=== PATIENT | male | born 1935 | race Caucasian/White ===

== ENCOUNTER 2017-04-11 10:17 | Inpatient (IN) | payer MEDICARE ==
[~2017-04-11] VITALS: Ht 188 cm; Wt 101.6 kg
[2017-04-11 11:00] LABS: BASOPHILS % (AUTO) 0.8 % (0.0-5.0); EOSINOPHILS % (AUTO) 2.5 % (0.0-8.0); HEMATOCRIT 28.5 % (42-54); LYMPHOCYTES % (AUTO) 6.8 % (21.0-51.0); MEAN CORPUSCULAR HEMOGLOBIN 28.1 pg (27.0-33.0); MEAN CORPUSCULAR HGB CONC 33.1 g/dL (32.0-36.0); MEAN CORPUSCULAR VOLUME 84.9 fL (79-99); MONOCYTES % (AUTO) 4.9 % (3.0-13.0); NUCLEATED RED BLOOD CELLS 0.1 % (0.0-0.19); PLATELET COUNT (AUTO) 246 K/uL (130-400); RED BLOOD CELL COUNT(AUTO) 3.36 MIL/uL (4.50-6.20); RED CELL DISTRIBUTION WIDTH 15.5 % (11.0-15.5); WHITE BLOOD COUNT (AUTO) 7.9 K/uL (4.8-10.8)
[2017-04-11 11:08] LABS: APPEARANCE,URINE Clear (CLEAR); BILIRUBIN,URINE Negative (NEGATIVE); COLOR,URINE Yellow (YELLOW); GLUCOSE, URINE (UA) Negative (NEGATIVE); KETONES,URINE Negative (NEGATIVE); LEUKOCYTE ESTERASE ,URINE Small (NEGATIVE); NITRATE,URINE Negative (NEGATIVE); OCCULT BLOOD,URINE Negative (NEGATIVE); PROTEIN,URINE Negative (NEGATIVE); UROBILINOGEN,URINE 0.2 mg/dL (0.2-1.0)
[2017-04-11 11:09] LABS: CREATININE 2.9 mg/dL (0.5-1.5); POTASSIUM 5.6 mmol/L (3.5-5.1)
[2017-04-11] MEDS ORDERED: SODIUM CHLORIDE 0.9% 500ML 500 ML IV ONE (11:11)
[2017-04-11 11:12] LABS: ALBUMIN 3.7 g/dL (3.5-5.0); BILIRUBIN,TOTAL 0.4 mg/dL (0.2-1.0); TOTAL PROTEIN, SERUM 7.3 g/dL (6.0-8.3)
[2017-04-11 11:27] LABS: RAPID GROUP A STREP NEGATIVE (NEGATIVE)
[2017-04-11 11:53] LABS: INR 2.19 (0.85-1.15); PARTIAL THROMBOPLASTIN TIME 29.9 SEC (26.3-35.5); PROTHROMBIN TIME 22.6 SEC (9.6-11.6)
[2017-04-11] MEDS ORDERED: METOPROLOL TARTRATE 1 MG/ML 5ML VIAL IV ONE ×3 (12:04→15:45)
[2017-04-11 12:05] LABS: BACTERIA,URINE Rare /HPF (None Seen); HYALINE CASTS, URINE 0-1 /LPF (0-1 /LPF); MUCUS,URINE Rare LPF (None Seen); RBC,URINE 0-1 /HPF (0-1); SQUAMOUS EPITHELIAL CELL,UR Rare /LPF (0-2); WBC,URINE 0-1 /HPF (0-1)
[2017-04-11] MEDS ORDERED: SODIUM CHLORIDE 0.9% 1000ML 1,000 ML IV SCH (13:10)
[2017-04-11] MEDS ORDERED: HYDRALAZINE HCL 20 MG/ML VIAL IV PRN (13:15)
[2017-04-11] MEDS ORDERED: LIDOCAINE HCL-MPF 1% 2ML VIAL IVP PRN (13:15)
[2017-04-11] MEDS ORDERED: MAG HYDROX/AL HYDROX/SIMETH ES 30 ML SUSP UDCUP PO PRN (13:15)
[2017-04-11] MEDS ORDERED: GUAIFENESIN-DM 200/20 MG 10 ML PO PRN (13:15)
[2017-04-11] MEDS ORDERED: ACETAMINOPHEN-CODEINE 300/30MG TAB PO PRN ×2 (13:15)
[2017-04-11] MEDS ORDERED: ONDANSETRON HCL 4 MG/2 ML VIAL IV PRN (13:15)
[2017-04-11] MEDS ORDERED: DiphenhydrAMINE HCL 50 MG/ML VIAL IV PRN (13:15)
[2017-04-11] MEDS ORDERED: POTASSIUM CHLORIDE 20MEQ/100ML 100 ML IV PRN (13:15)
[2017-04-11] MEDS ORDERED: POTASSIUM CHLORIDE 10% ELIXIR 20 MEQ/15 ML UDCUP PO PRN (13:15)
[2017-04-11] MEDS ORDERED: NITROGLYCERIN 0.4 MG SL TAB SL PRN (13:15)
[2017-04-11] MEDS ORDERED: DIPHENHYDRAMINE HCL 25 MG CAPSULE PO PRN (13:15)
[2017-04-11] MEDS ORDERED: MORPHINE SULFATE 2 MG/ML 1ML SYG IV PRN (13:15)
[2017-04-11] MEDS ORDERED: POTASSIUM CHLORIDE 20 MEQ ERTAB PO PRN (13:15)
[2017-04-11] MEDS ORDERED: ACETAMINOPHEN 325 MG TAB PO PRN ×2 (13:15)
[2017-04-11] MEDS ORDERED: MORPHINE SULFATE 4 MG/1ML SYG IV PRN (13:15)
[2017-04-11] MEDS ORDERED: LACTULOSE 20 GM/30 ML UDCUP PO PRN (13:15)
[2017-04-11] MEDS ORDERED: DIGOXIN 250 MCG/ML 2ML AMP ONE (14:20)
[2017-04-11] MEDS ORDERED: AMIODARONE HCL 150 MG in DEXTROSE 5%-WATER 100 ML IV SCH (16:15)
[2017-04-11] MEDS ORDERED: AMIODARONE HCL 900 MG in DEXTROSE 5%-WATER 500 ML IV SCH (16:15)
[2017-04-11] MEDS: INSULIN HUMULIN R 100 UNIT/ML 3ML SQ SCH ×2 (16:30→21:00)
[2017-04-11 16:55] VITALS: BP 130/78
[2017-04-11] MEDS ORDERED: HYDR10 PO (17:38)
[2017-04-11] MEDS ORDERED: WARF-57 PO (17:38)
[2017-04-11] MEDS ORDERED: ATOR40TA71 PO (17:38)
[2017-04-11] MEDS ORDERED: LISI10TA7 PO (17:38)
[2017-04-11] MEDS ORDERED: FURO40TA5 PO (17:38)
[2017-04-11] MEDS ORDERED: AEC81 PO (17:38)
[2017-04-11] MEDS ORDERED: LEVO150T11 PO (17:38)
[2017-04-11] MEDS ORDERED: POTA10TA14 PO (17:38)
[2017-04-11] MEDS ORDERED: AMIO200T2 PO (17:38)
[2017-04-11] MEDS ORDERED: WARF7.5T49 PO (17:38)
[2017-04-11] MEDS ORDERED: CARV6.25 PO (17:38)
[2017-04-11] MEDS ORDERED: MULT-1258 PO (17:38)
[2017-04-11] MEDS ORDERED: NITR0.4T SL (17:38)
[2017-04-11 18:30] LABS: CREATINE KINASE MB 1.4 ng/mL (0.5-3.6); TROPONIN I 0.05 ng/mL (0.00-0.06)
[2017-04-11 19:29] VITALS: BP 107/60
[2017-04-11] MEDS: FAMOTIDINE/PF 20 MG/2 ML VIAL IV SCH (20:15)
[2017-04-11] MEDS: METOPROLOL TARTRATE 25 MG TAB PO SCH (20:15)
[2017-04-11 23:13] VITALS: BP 104/63
[2017-04-12 02:19] LABS: HEMATOCRIT 23.2 % (42-54); MEAN CORPUSCULAR HEMOGLOBIN 29.1 pg (27.0-33.0); MEAN CORPUSCULAR HGB CONC 33.7 g/dL (32.0-36.0); MEAN CORPUSCULAR VOLUME 86.4 fL (79-99); PLATELET COUNT (AUTO) 181 K/uL (130-400); RED BLOOD CELL COUNT(AUTO) 2.69 MIL/uL (4.50-6.20); RED CELL DISTRIBUTION WIDTH 15.4 % (11.0-15.5); WHITE BLOOD COUNT (AUTO) 6.3 K/uL (4.8-10.8)
[2017-04-12] MEDS: SODIUM POLYSTYRENE SULFONATE 15 GM/60 ML ML PO SCH ×2 (02:30→19:12)
[2017-04-12 02:41] LABS: CREATINE KINASE MB 0.9 ng/mL (0.5-3.6); CREATININE 2.6 mg/dL (0.5-1.5); MAGNESIUM 1.8 mg/dL (1.80-2.40); PHOSPHORUS 4.1 mg/dL (2.5-4.9); POTASSIUM 5.6 mmol/L (3.5-5.1); TROPONIN I 0.05 ng/mL (0.00-0.06)
[2017-04-12 02:51] LABS: B-TYPE NATRIURETIC PEPTIDE 567 pg/mL (0-100)
[2017-04-12] MEDS ORDERED: SODIUM POLYSTYRENE SULFONATE 15 GM/60 ML ML ONE (03:02)
[2017-04-12 03:29] VITALS: BP 93/61
[2017-04-12 07:00] VITALS: BP 106/75
[2017-04-12] MEDS: ASPIRIN 325 MG TABLET PO SCH (09:09)
[2017-04-12] MEDS: FAMOTIDINE/PF 20 MG/2 ML VIAL IV SCH ×2 (09:09→20:19)
[2017-04-12] MEDS: METOPROLOL TARTRATE 25 MG TAB PO SCH ×2 (09:09→20:19)
[2017-04-12] MEDS ORDERED: NITROGLYCERIN 0.4 MG SL TAB SL SCH (09:15)
[2017-04-12 09:43] LABS: INR 2.47 (0.85-1.15); PROTHROMBIN TIME 25.5 SEC (9.6-11.6)
[2017-04-12 12:07] VITALS: BP 121/62
[2017-04-12 16:00] VITALS: BP 107/70
[2017-04-12 19:26] VITALS: BP 105/55
[2017-04-12] MEDS: HYDRALAZINE HCL 10 MG TABLET PO SCH (20:19)
[2017-04-12] MEDS ORDERED: ATORVASTATIN CALCIUM 40 MG TABLET PO SCH (21:00)
[2017-04-12 23:53] VITALS: BP 106/52
[2017-04-13] VITALS (12 sets, daily range): BP systolic 103–133; BP diastolic 49–69
[2017-04-13 04:41] LABS: HEMATOCRIT 24.1 % (42-54); MEAN CORPUSCULAR HEMOGLOBIN 28.1 pg (27.0-33.0); MEAN CORPUSCULAR VOLUME 85.2 fL (79-99); PLATELET COUNT (AUTO) 213 K/uL (130-400); RED BLOOD CELL COUNT(AUTO) 2.82 MIL/uL (4.50-6.20); RED CELL DISTRIBUTION WIDTH 15.5 % (11.0-15.5); WHITE BLOOD COUNT (AUTO) 5.9 K/uL (4.8-10.8)
[2017-04-13 04:47] LABS: CREATININE 1.9 mg/dL (0.5-1.5); POTASSIUM 4.4 mmol/L (3.5-5.1)
[2017-04-13 05:20] LABS: B-TYPE NATRIURETIC PEPTIDE 621 pg/mL (0-100)
[2017-04-13] MEDS ORDERED: LEVOTHYROXINE 150 MCG TABLET PO SCH (07:30)
[2017-04-13] MEDS: METOPROLOL TARTRATE 25 MG TAB PO SCH (09:00)
[2017-04-13] MEDS ORDERED: FUROSEMIDE 40 MG TABLET PO SCH (09:00)
[2017-04-13] MEDS ORDERED: POTASSIUM CHLORIDE 10 MEQ/TAB.SA PO SCH (09:00)
[2017-04-13] MEDS ORDERED: MULTIVITAMIN WITH MINERALS TABLET PO SCH (09:00)
[2017-04-13] MEDS: HYDRALAZINE HCL 10 MG TABLET PO SCH (09:00)
[2017-04-13] MEDS: FAMOTIDINE/PF 20 MG/2 ML VIAL IV SCH (09:00)
[2017-04-13] MEDS: ASPIRIN 325 MG TABLET PO SCH (09:00)
[2017-04-13] MEDS ORDERED: LISINOPRIL 10 MG TABLET PO SCH (09:00)
[2017-04-13] MEDS ORDERED: SODIUM CHLORIDE 0.9% 1000ML 1,000 ML IV ONE (09:50)
[2017-04-13] MEDS ORDERED: PROPOFOL 10 MG/ML 20ML VIAL IV ONE (10:16)
== END 2017-04-13 13:00 | disposition home or self-care (01) | DRG 291 ==
LOC: EDH 10:17 → OBSVTOIN 12:28 → EDHIP 12:28 → 2AH 16:30
PROVIDERS: ADMIT Internal Medicine; ATTEND Internal Medicine
PROC: 5A2204Z Restoration of Cardiac Rhythm, Single (ICD-10-PCS; principal; 2017-04-13)
DX: I13.0 Hypertensive heart and chronic kidney disease with heart failure and stage 1 through stage 4 chronic kidney disease, or unspecified chronic kidney disease (principal); I50.33 Acute on chronic diastolic (congestive) heart failure; N17.9 Acute kidney failure, unspecified; E11.22 Type 2 diabetes mellitus with diabetic chronic kidney disease; E87.5 Hyperkalemia; I48.91 Unspecified atrial fibrillation; I48.92 Unspecified atrial flutter; I47.1 Supraventricular tachycardia; E03.9 Hypothyroidism, unspecified; I42.9 Cardiomyopathy, unspecified; E78.5 Hyperlipidemia, unspecified; I25.10 Atherosclerotic heart disease of native coronary artery without angina pectoris; N18.9 Chronic kidney disease, unspecified; Z86.73 Personal history of transient ischemic attack (TIA), and cerebral infarction without residual deficits; Z95.1 Presence of aortocoronary bypass graft; Z95.2 Presence of prosthetic heart valve; Z95.810 Presence of automatic (implantable) cardiac defibrillator; I08.0 Rheumatic disorders of both mitral and aortic valves; Z88.0 Allergy status to penicillin; Z28.21 Immunization not carried out because of patient refusal
CPT/HCPCS: 36415; 71045; 80048; 80053; 81001; 82550; 82553; 83605; 83735; 83874; 83880; 84100; 84132; 84484; 85025; 85027; 85378; 85610; 85730; 87804; 87880; 92960; 93005; 93970; 99291; J0282; J1160; J2704; J3490; J7030; J7040; J7060

== ENCOUNTER 2017-05-21 14:01 | Observation (INO) | payer MEDICARE ==
[~2017-05-21] VITALS: Ht 188 cm; Wt 97.1 kg
[~2017-05-21 14:01] MED LIST: AEC81 PO; AMIO200T2 PO; ATOR40TA71 PO; CARV6.25 PO; FURO40TA5 PO; LEVO150T11 PO; LISI10TA7 PO; MULT-1258 PO; NITR0.4T SL; POTA10TA14 PO; WARF-57 PO; WARF7.5T49 PO
[2017-05-21 15:34] LABS: BASOPHILS % (AUTO) 0.9 % (0.0-5.0); EOSINOPHILS % (AUTO) 9.3 % (0.0-8.0); HEMATOCRIT 24.4 % (42-54); LYMPHOCYTES % (AUTO) 14.2 % (21.0-51.0); MEAN CORPUSCULAR HEMOGLOBIN 25.5 pg (27.0-33.0); MEAN CORPUSCULAR HGB CONC 32.1 g/dL (32.0-36.0); MEAN CORPUSCULAR VOLUME 79.3 fL (79-99); MONOCYTES % (AUTO) 9.6 % (3.0-13.0); PLATELET COUNT (AUTO) 246 K/uL (130-400); RED BLOOD CELL COUNT(AUTO) 3.08 MIL/uL (4.50-6.20); RED CELL DISTRIBUTION WIDTH 16.2 % (11.0-15.5); WHITE BLOOD COUNT (AUTO) 5.8 K/uL (4.8-10.8)
[2017-05-21 15:46] LABS: CREATININE 2.3 mg/dL (0.5-1.5); POTASSIUM 4.6 mmol/L (3.5-5.1)
[2017-05-21 15:47] LABS: INR 2.74 (0.85-1.15); PARTIAL THROMBOPLASTIN TIME 32.3 SEC (26.3-35.5); PROTHROMBIN TIME 28.2 SEC (9.6-11.6)
[2017-05-21 15:51] LABS: ALBUMIN 3.9 g/dL (3.5-5.0); BILIRUBIN,TOTAL 0.6 mg/dL (0.2-1.0); TOTAL PROTEIN, SERUM 7.3 g/dL (6.0-8.3)
[2017-05-21 16:51] LABS: APPEARANCE,URINE Clear (CLEAR); BILIRUBIN,URINE Negative (NEGATIVE); COLOR,URINE Yellow (YELLOW); GLUCOSE, URINE (UA) Negative (NEGATIVE); KETONES,URINE Negative (NEGATIVE); LEUKOCYTE ESTERASE ,URINE Trace (NEGATIVE); NITRATE,URINE Negative (NEGATIVE); OCCULT BLOOD,URINE Negative (NEGATIVE); PROTEIN,URINE Negative (NEGATIVE); UROBILINOGEN,URINE 0.2 mg/dL (0.2-1.0)
[2017-05-21 17:05] LABS: RBC,URINE None Seen /HPF (0-1); WBC,URINE 0-1 /HPF (0-1)
[2017-05-21 17:06] LABS: BACTERIA,URINE None Seen /HPF (None Seen); SQUAMOUS EPITHELIAL CELL,UR 0-2 /HPF (0-2)
[2017-05-21 19:27] LABS: RETICULOCYTE % (AUTO) 1.91 % (0.42-2.23)
[2017-05-21 19:40] VITALS: BP 141/70
[2017-05-21 20:11] LABS: % IRON SATURATION 4.3 % (30-44); FERRITIN 25 ng/mL (30-400); IRON, SERUM 22 mcg/dL (65-175); TOTAL IRON BINDING CAPACITY 506 mcg/dL (250-450)
[2017-05-21 20:20] VITALS: BP 141/70
[2017-05-21] MEDS ORDERED: SODIUM CHLORIDE 0.9% 500ML 500 ML IV ONE (20:55)
[2017-05-21] MEDS ORDERED: ONDANSETRON HCL MDV 20ML 2 MG/ML VIAL IVP PRN (21:00)
[2017-05-21] MEDS ORDERED: ACETAMINOPHEN 325 MG TAB PO PRN ×2 (21:00)
[2017-05-21] MEDS ORDERED: FUROSEMIDE 10 MG/ML 4ML VIAL IV SCH (22:00)
[2017-05-22 02:06] LABS: HEMATOCRIT 23.3 % (42-54)
[2017-05-22 04:00] VITALS: BP 132/66
[2017-05-22 08:00] VITALS: BP 142/74
[2017-05-22 08:20] LABS: HEMATOCRIT 28.1 % (42-54); MEAN CORPUSCULAR HEMOGLOBIN 27.1 pg (27.0-33.0); MEAN CORPUSCULAR HGB CONC 33.9 g/dL (32.0-36.0); PLATELET COUNT (AUTO) 234 K/uL (130-400); RED BLOOD CELL COUNT(AUTO) 3.52 MIL/uL (4.50-6.20); RED CELL DISTRIBUTION WIDTH 16.2 % (11.0-15.5); WHITE BLOOD COUNT (AUTO) 6.3 K/uL (4.8-10.8)
[2017-05-22 08:36] LABS: INR 2.28 (0.85-1.15); PROTHROMBIN TIME 23.6 SEC (9.6-11.6)
[2017-05-22] MEDS ORDERED: FAMOTIDINE 20MG TAB 20 MG TAB PO SCH (09:00)
[2017-05-22] MEDS ORDERED: FERROUS SULFATE 325 MG TABLET.DR PO SCH (09:00)
[2017-05-22] MEDS ORDERED: FERS325 PO (09:43)
== END 2017-05-22 11:35 | disposition home or self-care (01) ==
LOC: EDH 14:01 → EDHIP 18:00 → 3BH 19:52
PROVIDERS: ADMIT Internal Medicine; ATTEND Internal Medicine
DX: D50.9 Iron deficiency anemia, unspecified (principal); I12.9 Hypertensive chronic kidney disease with stage 1 through stage 4 chronic kidney disease, or unspecified chronic kidney disease; N18.3 Chronic kidney disease, stage 3 (moderate); I48.2 Chronic atrial fibrillation; E78.5 Hyperlipidemia, unspecified; I25.10 Atherosclerotic heart disease of native coronary artery without angina pectoris; I05.9 Rheumatic mitral valve disease, unspecified; I35.9 Nonrheumatic aortic valve disorder, unspecified; E03.9 Hypothyroidism, unspecified; I42.9 Cardiomyopathy, unspecified; Z95.2 Presence of prosthetic heart valve; Z86.73 Personal history of transient ischemic attack (TIA), and cerebral infarction without residual deficits; Z95.1 Presence of aortocoronary bypass graft; Z79.01 Long term (current) use of anticoagulants
CPT/HCPCS: 36415 ×2; 36430; 71045; 80053; 81001; 82270; 82607; 82728; 82746; 84484; 85014; 85018; 85025; 85027; 85610 ×2; 85730; 86850; 86900; 86901; 86922; 93005; 96374; 99285; G0378 ×18; J1940; J7040; P9016 ×2

== ENCOUNTER → 2017-05-28 | Outpatient (CLI) | payer MEDICARE ==
[~2017-05-28] MED LIST changes: +ALBUTEROL SULFATE 0.083% 2.5 MG/3 ML INH IH ONE; +FERS325 PO; -NITR0.4T SL
== END ==
LOC: RESP 08:43
PROVIDERS: ATTEND Internal Medicine Cardiovascular Disease
DX: R06.09 Other forms of dyspnea (principal)
CPT/HCPCS: 94060; 94727; 94729

== ENCOUNTER → 2017-06-02 | Outpatient (CLI) | payer MEDICARE ==
[~2017-06-02] MED LIST changes: -ALBUTEROL SULFATE 0.083% 2.5 MG/3 ML INH IH ONE; -AMIO200T2 PO; +AMIO200T5 PO
== END ==
LOC: RAH 13:31
PROVIDERS: ATTEND Internal Medicine Cardiovascular Disease
DX: I70.0 Atherosclerosis of aorta (principal); I51.7 Cardiomegaly; J84.10 Pulmonary fibrosis, unspecified
CPT/HCPCS: 71250

== ENCOUNTER → 2017-07-01 | Outpatient (CLI) | payer MEDICARE | END | disposition home or self-care (01) | LOC: RAH 09:58 | PROVIDERS: ATTEND Internal Medicine | DX: N40.0 Benign prostatic hyperplasia without lower urinary tract symptoms (principal); N28.89 Other specified disorders of kidney and ureter | CPT/HCPCS: 74176 ==

== ENCOUNTER → 2017-07-10 | Outpatient (CLI) | payer MEDICARE | END | disposition home or self-care (01) | LOC: RAH 13:28 | PROVIDERS: ATTEND Internal Medicine | DX: N28.1 Cyst of kidney, acquired (principal); N28.89 Other specified disorders of kidney and ureter | CPT/HCPCS: 76770 ==

== ENCOUNTER 2017-12-10 05:59 | Day surgery (SDC) | payer MEDICARE ==
[2017-12-08 13:45] VITALS: BP 125/57
[2017-12-08 14:09] LABS: BASOPHILS % (AUTO) 1.2 % (0.0-5.0); EOSINOPHILS % (AUTO) 4.5 % (0.0-8.0); HEMATOCRIT 34.9 % (42-54); LYMPHOCYTES % (AUTO) 13.7 % (21.0-51.0); MEAN CORPUSCULAR HEMOGLOBIN 32.6 pg (27.0-33.0); MEAN CORPUSCULAR HGB CONC 33.7 g/dL (32.0-36.0); MEAN CORPUSCULAR VOLUME 96.6 fL (79-99); MONOCYTES % (AUTO) 7.2 % (3.0-13.0); NEUTROPHILS % (AUTO) 73.4 % (40.0-77.0); PLATELET COUNT (AUTO) 183 K/uL (130-400); RED BLOOD CELL COUNT(AUTO) 3.61 MIL/uL (4.50-6.20); RED CELL DISTRIBUTION WIDTH 14.1 % (11.0-15.5); WHITE BLOOD COUNT (AUTO) 5.4 K/uL (4.8-10.8)
[2017-12-08 14:20] LABS: CREATININE 1.7 mg/dL (0.5-1.5); POTASSIUM 4.3 mmol/L (3.5-5.1)
[2017-12-08 14:34] LABS: INR 1.55 (0.85-1.15); PROTHROMBIN TIME 16.1 SEC (9.6-11.6)
[2017-12-10] VITALS (9 sets, daily range): BP systolic 108–128; BP diastolic 53–65
[~2017-12-10] VITALS: Ht 188 cm; Wt 96.3 kg
[~2017-12-10 05:59] MED LIST changes: -AMIO200T5 PO; -LISI10TA7 PO; +NITR0.4T50 SL
[2017-12-10] MEDS ORDERED: SODIUM CHLORIDE 0.9% 1000ML 1,000 ML IV SCH (06:00)
[2017-12-10] MEDS ORDERED: WARF7.5T49 PO (06:49)
[2017-12-10] MEDS ORDERED: LIDOCAINE HCL-MPF 2% 5ML VIAL ONE (07:44)
[2017-12-10] MEDS ORDERED: MEPERIDINE-PF 25 MG/ML SYG ONE ×4 (07:44→09:12)
[2017-12-10] MEDS ORDERED: MIDAZOLAM HCL 1 MG/ML 2ML VIAL ONE ×4 (07:45→09:12)
== END 2017-12-10 14:00 | disposition home or self-care (01) ==
LOC: DAH 05:59
PROVIDERS: ATTEND Internal Medicine Cardiovascular Disease
DX: I48.92 Unspecified atrial flutter (principal); I47.1 Supraventricular tachycardia; I25.10 Atherosclerotic heart disease of native coronary artery without angina pectoris; E78.5 Hyperlipidemia, unspecified; E03.9 Hypothyroidism, unspecified; D86.2 Sarcoidosis of lung with sarcoidosis of lymph nodes; I13.0 Hypertensive heart and chronic kidney disease with heart failure and stage 1 through stage 4 chronic kidney disease, or unspecified chronic kidney disease; N18.4 Chronic kidney disease, stage 4 (severe); I50.9 Heart failure, unspecified; Z98.890 Other specified postprocedural states; Z79.82 Long term (current) use of aspirin; Z79.899 Other long term (current) drug therapy; Z79.01 Long term (current) use of anticoagulants; Z95.1 Presence of aortocoronary bypass graft; Z87.19 Personal history of other diseases of the digestive system; Z91.010 Allergy to peanuts
CPT/HCPCS: 36415; 80048; 85025; 85610; 85730; 93287 ×2; 93613; 93621; 93653; A4606; A4649; C1730; C1732; C1893; C1894 ×2; J1644; J2175 ×4; J2250 ×4; J3490; J7030; 99156; 99157

== ENCOUNTER → 2018-04-09 | Outpatient (CLI) | payer MEDICARE | END | disposition home or self-care (01) | LOC: RAH 12:07 | PROVIDERS: ATTEND Internal Medicine | DX: M17.12 Unilateral primary osteoarthritis, left knee (principal); M17.11 Unilateral primary osteoarthritis, right knee | CPT/HCPCS: 73562 ==

== ENCOUNTER 2018-06-10 06:36 | Day surgery (SDC) | payer MEDICARE ==
[2018-06-09 15:12] VITALS: BP 112/56
[2018-06-09 15:25] LABS: BASOPHILS % (AUTO) 0.9 % (0.0-5.0); EOSINOPHILS % (AUTO) 6.1 % (0.0-8.0); HEMATOCRIT 31.2 % (42-54); LYMPHOCYTES % (AUTO) 14.3 % (21.0-51.0); MEAN CORPUSCULAR HEMOGLOBIN 31.8 pg (27.0-33.0); MEAN CORPUSCULAR HGB CONC 33.9 g/dL (32.0-36.0); MEAN CORPUSCULAR VOLUME 93.7 fL (79-99); MONOCYTES % (AUTO) 7.8 % (3.0-13.0); NEUTROPHILS % (AUTO) 70.9 % (40.0-77.0); PLATELET COUNT (AUTO) 198 K/uL (130-400); RED BLOOD CELL COUNT(AUTO) 3.33 MIL/uL (4.50-6.20); RED CELL DISTRIBUTION WIDTH 13.2 % (11.0-15.5); WHITE BLOOD COUNT (AUTO) 6.6 K/uL (4.8-10.8)
[2018-06-09 15:27] LABS: CREATININE 2.1 mg/dL (0.5-1.5); POTASSIUM 4.3 mmol/L (3.5-5.1)
[2018-06-09 15:30] LABS: PARTIAL THROMBOPLASTIN TIME 35.8 SEC (26.3-35.5)
[2018-06-09 15:40] LABS: PROTHROMBIN TIME 39.1 SEC (9.6-11.6)
[2018-06-09 15:41] LABS: INR 3.82 (0.85-1.15)
--- NOTE | 2018-06-09 17:00 | NUR ---
ABNORMAL LABS, H&P CALLED DR. MAYO'S OFFICE TO REPORT ABNORMAL LABS. SPOKE TO CORNELIUS, STATED TO FAX LABS, WILL CALL BACK FOR ORDERS IF ANY. CBC, BMP, PT/INR RESULTS FAXED. FOLLOW UP ON H&P, CORNELIUS STATED DR. MAYO HAS NOT DONE THE H&P, FOR NOW, JUST PLACE A SHORT FORM IN CHART.
[~2018-06-10] VITALS: Ht 188 cm; Wt 98.3 kg
[2018-06-10] VITALS (9 sets, daily range): BP systolic 106–131; BP diastolic 48–79
[~2018-06-10 06:36] MED LIST changes: +LISI2.5T2 PO; +SODIUM CHLORIDE 0.9% 1000ML 1,000 ML IV SCH; -WARF-57 PO
--- NOTE | 2018-06-10 07:00 | NUR ---
ASSESSMENT PT HERE FOR PROCEDURE. EKG SHOWED VENTRICULAR PACED COMPLEXES ON EKG. PT FEELS FINE. DENIES ANY DIZZINESS, PAIN. AT BEDSIDE.
[2018-06-10] MEDS ORDERED: PROPOFOL 10 MG/ML 20ML VIAL IV ONE (07:52)
--- NOTE | 2018-06-10 08:41 | NUR ---
CARDIOVERSION CARDIOVERSION WITH Yue SMITH CRNA AND DR. MAYO PERFORMED AT BEDSIDE. TIME OUT DONE AT 0843. START TIME OF PROCEDURE WAS 0844. INTERNAL SHOCK AT [address] MAYO AT 0845. SUCCESSFUL. PROCEDURE DENIED AT 0855 AND RECOVERY PHASE STARTED. PT TOLERATED WELL WITHOUT ANY COMPLAINTS. DR. MAYO SPOKE TO PT AND PTS . NO OTHER QUESTIONS AT THIS TIME.
--- NOTE | 2018-06-10 09:45 | NUR ---
DISCHARGE ORAL AND WRITTEN DISCHARGE INSTRUCTIONS GIVEN TO PT AND PTS . NO OTHER QUESTIONS AT THIS TIME.
== END 2018-06-10 09:50 | disposition home or self-care (01) ==
LOC: DAH 06:36
PROVIDERS: ATTEND Internal Medicine Cardiovascular Disease
DX: I48.91 Unspecified atrial fibrillation (principal); I47.1 Supraventricular tachycardia; Z88.0 Allergy status to penicillin; Z79.01 Long term (current) use of anticoagulants; Z79.82 Long term (current) use of aspirin; Z79.899 Other long term (current) drug therapy; Z68.27 Body mass index [BMI] 27.0-27.9, adult; I25.10 Atherosclerotic heart disease of native coronary artery without angina pectoris; Z95.1 Presence of aortocoronary bypass graft; E78.5 Hyperlipidemia, unspecified; E03.9 Hypothyroidism, unspecified; J44.9 Chronic obstructive pulmonary disease, unspecified; D64.9 Anemia, unspecified; I42.9 Cardiomyopathy, unspecified; I12.9 Hypertensive chronic kidney disease with stage 1 through stage 4 chronic kidney disease, or unspecified chronic kidney disease; N18.4 Chronic kidney disease, stage 4 (severe)
CPT/HCPCS: 36415; 80048; 85025; 85610; 85730; 92960; 93005 ×2; A4606; J2704; J7030; 99156

== ENCOUNTER → 2018-08-13 | Outpatient (CLI) | payer MEDICARE ==
[~2018-08-13] MED LIST changes: -FERS325 PO; -NITR0.4T50 SL; -SODIUM CHLORIDE 0.9% 1000ML 1,000 ML IV SCH
== END | disposition home or self-care (01) ==
LOC: SHCH 14:28
PROVIDERS: ATTEND Internal Medicine Cardiovascular Disease
DX: I08.1 Rheumatic disorders of both mitral and tricuspid valves (principal); I11.9 Hypertensive heart disease without heart failure; I27.20 Pulmonary hypertension, unspecified
CPT/HCPCS: 93306

== ENCOUNTER → 2018-08-18 | Outpatient (CLI) | payer MEDICARE ==
[~2018-08-18] VITALS: Ht 188 cm; Wt 97.5 kg
[~2018-08-18] MED LIST changes: +REGADENOSON 0.4 MG/5 ML PF SYG IVP SCH
== END | disposition home or self-care (01) ==
LOC: SHCH 08:03
PROVIDERS: ATTEND Internal Medicine Cardiovascular Disease
DX: I42.0 Dilated cardiomyopathy (principal)
CPT/HCPCS: 78452; 93017; 96374; A9500 ×2; J2785

== ENCOUNTER → 2018-08-31 | Outpatient (CLI) | payer MEDICARE ==
[~2018-08-31] MED LIST changes: -REGADENOSON 0.4 MG/5 ML PF SYG IVP SCH
== END | disposition home or self-care (01) ==
LOC: RAH 12:27
PROVIDERS: ATTEND Internal Medicine
DX: R05 Cough (principal)
CPT/HCPCS: 71046

== ENCOUNTER → 2018-10-09 | Outpatient (CLI) | payer MEDICARE | END | disposition home or self-care (01) | LOC: RAH 10:36 | PROVIDERS: ATTEND Internal Medicine | DX: J44.9 Chronic obstructive pulmonary disease, unspecified (principal); J84.10 Pulmonary fibrosis, unspecified; I51.7 Cardiomegaly; M47.815 Spondylosis without myelopathy or radiculopathy, thoracolumbar region; Z95.0 Presence of cardiac pacemaker | CPT/HCPCS: 71250 ==

== ENCOUNTER 2018-11-12 14:55 | Emergency (ER) | payer MEDICARE ==
[2018-11-12] MEDS ORDERED: TETANUS/DIPHTHERIA TOXOID [ADULT] 0.5 ML VIAL IM ONE (15:03)
[2018-11-12] MEDS ORDERED: OCTYL 2-CYANOACRYLATE 1 EACH TP ONE ×2 (15:07→15:11)
== END 2018-11-12 16:01 | disposition home or self-care (01) ==
LOC: EDH 14:55
DX: S61.215A Laceration without foreign body of left ring finger without damage to nail, initial encounter (principal); I48.91 Unspecified atrial fibrillation; I25.10 Atherosclerotic heart disease of native coronary artery without angina pectoris; E78.5 Hyperlipidemia, unspecified; I10 Essential (primary) hypertension; E03.9 Hypothyroidism, unspecified; Z86.73 Personal history of transient ischemic attack (TIA), and cerebral infarction without residual deficits; Z87.891 Personal history of nicotine dependence; Z88.0 Allergy status to penicillin; W45.8XXA Other foreign body or object entering through skin, initial encounter; Y93.89 Activity, other specified; Y92.090 Kitchen in other non-institutional residence as the place of occurrence of the external cause; Y99.8 Other external cause status
CPT/HCPCS: 12001; 73140; 90471; 90714

== ENCOUNTER → 2020-04-06 | Outpatient (CLI) | payer MEDICARE | END | disposition home or self-care (01) | LOC: RAH 12:16 | PROVIDERS: ATTEND Internal Medicine | DX: Z01.818 Encounter for other preprocedural examination (principal); Z95.1 Presence of aortocoronary bypass graft | CPT/HCPCS: 71046 ==

== ENCOUNTER → 2021-07-27 | Outpatient (CLI) | payer MEDICARE ==
[~2021-07-27] MED LIST changes: +LISI2.5T13 PO; -LISI2.5T2 PO
== END | disposition home or self-care (01) ==
LOC: OIH 09:24
PROVIDERS: ATTEND Internal Medicine Cardiovascular Disease
DX: I27.20 Pulmonary hypertension, unspecified (principal); I25.5 Ischemic cardiomyopathy; I34.2 Nonrheumatic mitral (valve) stenosis; I11.9 Hypertensive heart disease without heart failure; E78.5 Hyperlipidemia, unspecified; Z95.3 Presence of xenogenic heart valve
CPT/HCPCS: 93306

== ENCOUNTER → 2021-08-03 | Outpatient (CLI) | payer MEDICARE ==
[~2021-08-03] MED LIST changes: +REGADENOSON 0.4 MG/5 ML PF SYG IVP SCH
== END | disposition home or self-care (01) ==
LOC: SHCH 07:30
PROVIDERS: ATTEND Internal Medicine Cardiovascular Disease
DX: I25.5 Ischemic cardiomyopathy (principal)
CPT/HCPCS: 78452; 93017; 96374; A9500 ×2; J2785

== ENCOUNTER → 2022-03-05 | Outpatient (CLI) | payer MEDICARE ==
[~2022-03-05] MED LIST changes: +DRON400T7 PO; +LEVO125T11 PO; -LEVO150T11 PO; -LISI2.5T13 PO; -POTA10TA14 PO; -REGADENOSON 0.4 MG/5 ML PF SYG IVP SCH; +TAMS-1 PO; +VIT1CAPS5 PO; +VITA1CAP85 PO
== END | disposition home or self-care (01) ==
LOC: SHCH 10:31
PROVIDERS: ATTEND Internal Medicine Cardiovascular Disease
DX: I08.1 Rheumatic disorders of both mitral and tricuspid valves (principal); I25.5 Ischemic cardiomyopathy; I27.20 Pulmonary hypertension, unspecified; Z95.3 Presence of xenogenic heart valve
CPT/HCPCS: 93306

== ENCOUNTER 2022-07-15 05:56 | Day surgery (SDC) | payer MEDICARE ==
[2022-07-12 12:21] LABS: BASOPHILS % (AUTO) 1.9 % (0.0-5.0); HEMATOCRIT 35.5 % (42-54); MEAN CORPUSCULAR HEMOGLOBIN 33.1 pg (27.0-33.0); MEAN CORPUSCULAR HGB CONC 33.5 g/dL (32.0-36.0); MEAN CORPUSCULAR VOLUME 98.6 fL (79-99); MONOCYTES % (AUTO) 10.9 % (3.0-13.0); PLATELET COUNT (AUTO) 149 K/uL (130-400); RED CELL DISTRIBUTION WIDTH 13.6 % (11.0-15.5); WHITE BLOOD COUNT (AUTO) 5.2 K/uL (4.8-10.8)
[2022-07-12 12:31] LABS: INR 1.59 (0.85-1.15); PROTHROMBIN TIME 16.9 SEC (9.6-11.6)
[2022-07-12 12:43] LABS: CREATININE 1.9 mg/dL (0.5-1.5); POTASSIUM 3.6 mmol/L (3.5-5.1)
[2022-07-12 12:52] VITALS: BP 148/72
[2022-07-15] VITALS (8 sets, daily range): BP systolic 127–154; BP diastolic 45–75
[~2022-07-15] VITALS: Ht 188 cm; Wt 95.4 kg
[~2022-07-15 05:56] MED LIST changes: +ALLO300T2 PO; -CARV6.25 PO; +CHOL200013 PO; +COLC0.6C3 PO; -DRON400T7 PO; +FERR325T29 PO; +FOLI0.8T22 PO; -LEVO125T11 PO; +LEVO137C4 PO
[2022-07-15] MEDS ORDERED: 0.9%NACL 1000ML 1,000 ML IV ONE (06:18)
[2022-07-15] MEDS ORDERED: BUPIVACAINE/PF 0.25% 10ML VIAL IJ ONE (08:34)
[2022-07-15] MEDS ORDERED: CEFAZOLIN SODIUM 1 GM VIAL ONE (08:35)
[2022-07-15] MEDS ORDERED: MIDAZOLAM HCL 1 MG/ML 2ML VIAL ONE ×2 (08:35→09:06)
[2022-07-15] MEDS ORDERED: MEPERIDINE-PF 25 MG/ML SYG ONE ×2 (08:35→09:06)
[2022-07-15] MEDS ORDERED: LIDOCAINE HCL 1% MDV 50ML VIAL ONE (08:35)
[2022-07-15] MEDS ORDERED: VANCOMYCIN 1G/250ML KIT 500 ML IV ONE (08:38)
[2022-07-15] MEDS ORDERED: BACITRACIN 1 EACH PACKET TP ONE ×2 (09:49→09:51)
[2022-07-15] MEDS ORDERED: ACETAMINOPHEN WITH CODEINE 1 TAB TAB PO PRN ×2 (10:00)
== END 2022-07-15 13:20 | disposition home or self-care (01) ==
LOC: DAH 05:56
PROVIDERS: ATTEND Internal Medicine Cardiovascular Disease
DX: Z45.02 Encounter for adjustment and management of automatic implantable cardiac defibrillator (principal); I25.5 Ischemic cardiomyopathy; I49.5 Sick sinus syndrome; I25.10 Atherosclerotic heart disease of native coronary artery without angina pectoris; I12.9 Hypertensive chronic kidney disease with stage 1 through stage 4 chronic kidney disease, or unspecified chronic kidney disease; N18.4 Chronic kidney disease, stage 4 (severe); I47.20 Ventricular tachycardia, unspecified; K21.00 Gastro-esophageal reflux disease with esophagitis, without bleeding; E78.5 Hyperlipidemia, unspecified; E03.9 Hypothyroidism, unspecified; Z88.0 Allergy status to penicillin; Z95.1 Presence of aortocoronary bypass graft; Z79.01 Long term (current) use of anticoagulants; Z79.82 Long term (current) use of aspirin; Z79.899 Other long term (current) drug therapy; Z98.890 Other specified postprocedural states
CPT/HCPCS: 80048; 85025; 85610; 85730; 36415; 93005; 33264; C1882; J7030; J2250 ×2; J3370; J3490 ×2; J2175 ×2; A4215; A4222; A4663; A4216; A4606; A4223 ×3; 99156; 99157; J0690

== ENCOUNTER → 2023-01-14 | Outpatient (CLI) | payer MEDICARE ==
[2023-01-14 12:25] LABS: BASOPHILS # (AUTO) 0.05 K/uL (0.00-0.20); BASOPHILS % (AUTO) 0.9 % (0.0-5.0); EOSINOPHILS # (AUTO) 0.44 K/uL (0.00-0.70); EOSINOPHILS % (AUTO) 8.3 % (0.0-8.0); HEMATOCRIT 35.2 % (42-54); IMMATURE GRANULOCYTE ABSOLUTE 0.01 K/uL (0-1); LYMPHOCYTES # (AUTO) 0.6 K/uL (1.0-4.8); LYMPHOCYTES % (AUTO) 10.7 % (21.0-51.0); MEAN CORPUSCULAR HEMOGLOBIN 33.2 pg (27.0-33.0); MEAN CORPUSCULAR HGB CONC 33.5 g/dL (32.0-36.0); MEAN CORPUSCULAR VOLUME 99.2 fL (79-99); MONOCYTES # (AUTO) 0.7 K/uL (0.1-1.0); MONOCYTES % (AUTO) 12.6 % (3.0-13.0); NEUTROPHILS # (AUTO) 3.6 K/uL (1.8-7.7); NEUTROPHILS % (AUTO) 67.3 % (40.0-77.0); PLATELET COUNT (AUTO) 157 K/uL (130-400); RED BLOOD CELL COUNT(AUTO) 3.55 MIL/uL (4.50-6.20); RED CELL DISTRIBUTION WIDTH 14.4 % (11.0-15.5); WHITE BLOOD COUNT (AUTO) 5.3 K/uL (4.8-10.8)
[2023-01-14 13:30] LABS: POTASSIUM 3.7 mmol/L (3.5-5.1)
[2023-01-14 13:31] LABS: BILIRUBIN,TOTAL 0.6 mg/dL (0.2-1.0); CREATININE 1.6 mg/dL (0.5-1.5)
[2023-01-14 13:32] LABS: ALBUMIN 3.6 g/dL (3.5-5.0); TOTAL PROTEIN, SERUM 6.9 g/dL (6.0-8.3)
[2023-01-14 13:33] LABS: THYROID STIMULATING HORMONE 1.8 uIU/mL (0.36-3.74)
[2023-01-14 13:39] LABS: T4 (THYROXINE) 6.3 ug/dL (4.7-13.3)
== END | disposition home or self-care (01) ==
LOC: LAB 10:24
PROVIDERS: ATTEND Internal Medicine Cardiovascular Disease
DX: I10 Essential (primary) hypertension (principal); I73.9 Peripheral vascular disease, unspecified
CPT/HCPCS: 36415; 80053; 83880; 84436; 84443; 84479; 85025

== ENCOUNTER → 2023-02-11 | Outpatient (CLI) | payer MEDICARE | END | disposition home or self-care (01) | LOC: SHCH 10:00 | PROVIDERS: ATTEND Internal Medicine Cardiovascular Disease | DX: I73.9 Peripheral vascular disease, unspecified (principal) | CPT/HCPCS: 93925 ==